=== PATIENT | male | born 1970 | race Hispanic/Latino ===

== ENCOUNTER 2017-06-28 13:27 | Outpatient (CLI) | payer OTHER ==
--- NOTE | 2017-07-12 18:11 | Magnetic Resonance Report ---
MR scan of the cranium was performed with abd without contrast. Pulse sequences included: 1. T1 weighted sagittal and axial images without contrast and axial and coronal images with contrast 2. T2 weighted axial and coronal images 3. FLAIR axial images 4. Diffusion-weighted axial images 5. Apparent diffusion coefficient images Views of the posterior fossa showed a normal craniocervical junction. Cerebellar pontine angles were normal with normal seventh-eighth nerve complexes. Brainstem and cerebellum were normal. The ventricular system showed no dilatation or distortion. Images of the hemispheres showed mild areas of increased signal consistent with white matter araiosis. Sinuses, flow voids in the [place], orbits, pituitary and basal ganglia were normal. There were no abnormal areas of enhancement with contrast Impression: Normal MR scan of the cranium with and without contrast except mild araiosis not likely to be clinically significant
== END 2017-06-28 13:28 | disposition home or self-care (01) ==
LOC: MRI 13:27
PROVIDERS: ATTEND Specialist
DX: G43.109 Migraine with aura, not intractable, without status migrainosus (principal)
CPT/HCPCS: 70553; A9577